=== PATIENT | female | born 1995 | race Caucasian/White ===

== ENCOUNTER 2020-10-29 13:19 | Emergency (ER) | payer OTHER ==
[~2020-10-29] VITALS: Ht 160 cm; Wt 63.5 kg
[2020-10-29 13:37] LABS: *BILIRUBIN,URIN NEGATIVE (NEGATIVE); *BLOOD, URINE 2+ (NEGATIVE); *CLARITY,URINE CLEAR (CLEAR); *COLOR,URINE LIGHT YELLOW (YELLOW); *KETONES,URINE NEGATIVE (NEGATIVE); *UROBILINOGEN,URINE 0.2 E.U./dl (NORMAL); LEUKOCYTE ESTERASE ,URINE 2+ (NEGATIVE); NITRITE, URINE NEGATIVE (NEGATIVE); PH,URINE 7.5 (5.0-8.0); UGLUCOSE NEGATIVE (NEGATIVE)
[2020-10-29 13:40] LABS: *URINE HCG, QUAL NEG (NEGATIVE)
[2020-10-29] MEDS ORDERED: MORPHINE SULFATE 4 MG/1 ML DISP.SYRIN IV ONE (14:00)
--- NOTE | 2020-10-29 14:00 | NUR ---
Inserted IV right AC 20g, ashley blood, gave to laboratory animal caretaker.
[2020-10-29 14:08] LABS: HEMATOCRIT 36.7 % (31.2-41.9); MEAN CORPUSCULAR VOLUME 93.3 fL (75.5-95.3); PLATELET COUNT (AUTO) 300 K/uL (179-408)
[2020-10-29] MEDS ORDERED: MORPHINE SULFATE 4 MG/1 ML DISP.SYRIN ONE (14:11)
[2020-10-29 14:14] LABS: CARBON DIOXIDE 26 mmol/L (21-32); CHLORIDE 103 mmol/L (98-107); CREATININE 0.7 mg/dL (0.6-1.3); GLUCOSE 98 mg/dL (74-106); POTASSIUM 3.6 mmol/L (3.5-5.1); UREA NITROGEN, BLOOD 10 mg/dL (7-18)
[2020-10-29 14:19] LABS: ALANINE AMINOTRANSFERASE 18 U/L (14-59); ALKALINE PHOSPHATASE 71 U/L (50-136); ASPARTATE AMINOTRANSFERASE 18 U/L (15-37); BILIRUBIN,TOTAL 0.3 mg/dL (0.2-1.0); LIPASE 78 U/L (73-393); TOTAL PROTEIN, SERUM 7.4 g/dL (6.4-8.2)
[2020-10-29 14:27] LABS: BACTERIA,URINE FEW /HPF (NONE SEEN); MUCUS,URINE FEW /LPF (0-FEW); SQUAMOUS EPITHELIAL CELL,UR FEW /HPF (NONE SEEN); URINE AMORPHOUS PHOSPHATES FEW /HPF
[2020-10-29] MEDS ORDERED: CEFTRIAXONE 1 G in IV DEXTROSE 5% 50 ML IV ONE (15:45)
[2020-10-29] MEDS ORDERED: CEFTRIAXONE /D5W 50ML IVPB **ER PYXIS IV ONE (16:25)
--- NOTE | 2020-10-29 17:21 | NUR ---
Pt taken to CT
[2020-10-29] MEDS ORDERED: SWABABLE VALVE TRANSFER SET EA MC ONE (17:22)
[2020-10-29] MEDS ORDERED: IV NORMAL SALINE 250 ML IV ONE (17:22)
[2020-10-29] MEDS ORDERED: IOHEXOL 300MG/ML 100 ML INFUS..BTL ONE (17:22)
[2020-10-29] MEDS ORDERED: CIPR500T5 PO (18:16)
--- NOTE | 2020-10-29 19:01 | NUR ---
Removed IV intact, site benign, bandaged. Gave pt strainer and cup for catching stone. Gave pt RX and d/c instructions, pt verbalized understanding.
[2020-10-29 19:09] VITALS: BP 128/82
== END 2020-10-29 19:10 | disposition home or self-care (01) ==
LOC: ER 13:19
DX: N20.0 Calculus of kidney (principal); N10 Acute pyelonephritis; Z87.442 Personal history of urinary calculi
CPT/HCPCS: 36415; 74177; 80053; 81001; 83690; 84702; 84703; 85025; 87077; 87086; 87186; 96365; 96375; 99285; J0696; J2270; Q9967; J7050

== ENCOUNTER 2021-07-20 11:55 | Emergency (ER) | payer OTHER ==
[~2021-07-20] VITALS: Ht 160 cm; Wt 63.5 kg
[~2021-07-20 11:55] MED LIST: CIPR500T5 PO
--- NOTE | 2021-07-20 12:29 | NUR ---
PT IS IN ROOM #2A. DR CHRISTIE EVALUATED THE PT.
[2021-07-20 12:43] LABS: *BILIRUBIN,URIN NEGATIVE (NEGATIVE); *BLOOD, URINE NEGATIVE (NEGATIVE); *CLARITY,URINE CLEAR (CLEAR); *COLOR,URINE YELLOW (YELLOW); *KETONES,URINE NEGATIVE (NEGATIVE); *URINE HCG, QUAL NEG (NEGATIVE); *UROBILINOGEN,URINE 0.2 E.U./dl (NORMAL); LEUKOCYTE ESTERASE ,URINE NEGATIVE (NEGATIVE); NITRITE, URINE NEGATIVE (NEGATIVE); UGLUCOSE NEGATIVE (NEGATIVE)
[2021-07-20] MEDS ORDERED: KETOROLAC TROMETHAMINE 30 MG INJ ONE (12:44)
[2021-07-20] MEDS ORDERED: IV NORMAL SALINE 1000 ML BAG IV ONE (12:45)
[2021-07-20] MEDS ORDERED: KETOROLAC TROMETHAMINE 30 MG INJ IVP ONE (12:45)
[2021-07-20 13:20] LABS: CARBON DIOXIDE 28 mmol/L (21-32); CHLORIDE 100 mmol/L (98-107); CREATININE 0.6 mg/dL (0.6-1.3); GLUCOSE 98 mg/dL (74-106); POTASSIUM 4.4 mmol/L (3.5-5.1); UREA NITROGEN, BLOOD 8 mg/dL (7-18)
[2021-07-20 13:21] LABS: HEMATOCRIT 36.7 % (31.2-41.9); MEAN CORPUSCULAR VOLUME 90.8 fL (75.5-95.3); PLATELET COUNT (AUTO) 316 K/uL (179-408)
[2021-07-20 13:26] LABS: ALANINE AMINOTRANSFERASE 29 U/L (14-59); ALKALINE PHOSPHATASE 72 U/L (50-136); ASPARTATE AMINOTRANSFERASE 16 U/L (15-37); BILIRUBIN,DIRECT < 0.1 mg/dL (0.0-0.2); BILIRUBIN,TOTAL 0.2 mg/dL (0.2-1.0); TOTAL PROTEIN, SERUM 7.1 g/dL (6.4-8.2)
[2021-07-20] MEDS ORDERED: CEPH250C PO (14:45)
--- NOTE | 2021-07-20 14:55 | NUR ---
Patient discharged to home in stable condition. Written and verbal after care instructions given. Patient verbalizes understanding of instructions. Stressed follow up or return to ER for worsening s/s.
== END 2021-07-20 14:56 | disposition home or self-care (01) ==
LOC: ER 11:55
DX: R30.0 Dysuria (principal); R10.32 Left lower quadrant pain; N83.201 Unspecified ovarian cyst, right side; Z87.442 Personal history of urinary calculi; Z87.440 Personal history of urinary (tract) infections
CPT/HCPCS: 36415; 76770; 76856; 80048; 80076; 81003; 84703; 85025; 96361; 96374; 99285; J1885; J7040

== ENCOUNTER 2022-11-08 21:47 | Emergency (ER) | payer OTHER ==
[~2022-11-08] VITALS: Ht 160 cm; Wt 56.7 kg
[~2022-11-08 21:47] MED LIST changes: +CEPH250C PO
[2022-11-09 00:12] LABS: BASOPHILS # (AUTO) 0.2 K/UL (0.0-0.2); BASOPHILS % (AUTO) 1.9 % (0.0-2.0); EOSINOPHILS # (AUTO) 0.2 K/uL (0.0-0.7); EOSINOPHILS % (AUTO) 2.7 % (0.0-7.0); HEMATOCRIT 36.8 % (31.2-41.9); HEMOGLOBIN 12.2 g/dL (10.9-14.3); LYMPHOCYTES # (AUTO) 2.1 K/uL (0.8-4.8); LYMPHOCYTES % (AUTO) 23.4 % (20.5-51.5); MEAN CORPUSCULAR HEMOGLOBIN 31.2 uug (24.7-32.8); MEAN CORPUSCULAR HGB CONC 33 g/dL (32.3-35.6); MEAN CORPUSCULAR VOLUME 94.4 fL (75.5-95.3); MONOCYTES # (AUTO) 0.5 K/uL (0.1-1.30); MONOCYTES % (AUTO) 6.1 % (0.0-11.0); NEUTROPHILS # (AUTO) 5.8 K/uL (1.8-8.9); NEUTROPHILS % (AUTO) 65.9 % (38.5-71.5); PLATELET COUNT (AUTO) 315 K/uL (179-408); RED CELL DISTRIBUTION WIDTH 12.5 % (12.3-17.7); WHITE BLOOD COUNT (AUTO) 8.8 K/uL (3.8-11.8)
[2022-11-09 00:19] LABS: CALCIUM 8.8 mg/dL (8.5-10.1); POTASSIUM 3.5 mmol/L (3.5-5.1)
[2022-11-09 00:25] LABS: BILIRUBIN,DIRECT 0.1 mg/dL (0.0-0.2); BILIRUBIN,TOTAL 0.3 mg/dL (0.2-1.0); TOTAL PROTEIN, SERUM 7.6 g/dL (6.4-8.2)
[2022-11-09 00:28] LABS: DIFFERENTIAL COMMENT 1
[2022-11-09 00:31] LABS: *BILIRUBIN,URIN NEGATIVE (NEGATIVE); *BLOOD, URINE NEGATIVE (NEGATIVE); *CLARITY,URINE CLEAR (CLEAR); *COLOR,URINE YELLOW (YELLOW); *KETONES,URINE TRACE (NEGATIVE); *PROTEIN,URINE TRACE (NEGATIVE); *UROBILINOGEN,URINE 0.2 E.U./dl (NORMAL); LEUKOCYTE ESTERASE ,URINE NEGATIVE (NEGATIVE); NITRITE, URINE NEGATIVE (NEGATIVE); PH,URINE 6.5 (5.0-8.0); UGLUCOSE NEGATIVE (NEGATIVE)
[2022-11-09 00:34] LABS: *URINE HCG, QUAL NEGATIVE (NEGATIVE)
[2022-11-09 00:42] LABS: RBC,URINE 0-3 /HPF (0-3); WBC,URINE NONE SEEN /HPF (0-3)
[2022-11-09 00:43] LABS: BACTERIA,URINE FEW /HPF (NONE SEEN); SQUAMOUS EPITHELIAL CELL,UR FEW /HPF (NONE SEEN)
[2022-11-09] MEDS ORDERED: CLOT15CR5 TP (04:07)
[2022-11-09 04:20] VITALS: BP 110/63; TEMP 98.3; O2SAT 97
== END 2022-11-09 04:20 | disposition home or self-care (01) ==
LOC: ER 21:50
DX: L30.9 Dermatitis, unspecified (principal); Z79.2 Long term (current) use of antibiotics; Z79.899 Other long term (current) drug therapy; Z20.822 Contact with and (suspected) exposure to COVID-19
CPT/HCPCS: 36415; 83605; 84703; 85025; 85730; A4663